=== PATIENT | female | born 1970 | race Caucasian/White ===

== ENCOUNTER 2024-12-15 06:07 | Day surgery (SDC) | payer OTHER, SELFPAY ==
[2024-12-03 08:49] LABS: Hematocrit 35.4 % (37.0-47.0); Hemoglobin 11.8 g/dL (12.0-16.0); Mean Corp Hgb Conc. 33.3 g/dL (33.0-37.0); Mean Corpuscular Hgb 31.6 pg (27.0-31.0); Mean Corpuscular Volume 94.7 fL (81.0-99.0); Mean Platelet Volume 9.4 fL (7.4-10.4); Platelet Count 301 10^3/uL (130-400); Red Blood Cell Count 3.74 10^6/uL (4.20-5.40); Red Cell Dist. Width 11.7 % (11.5-14.5); White Blood Cell Count 8.7 10^3/uL (4.8-10.8)
[2024-12-03 08:56] LABS: APTT 29.4 Sec (23.4-35.0); INR 0.88; PT 12.5 Sec (11.4-14.6)
[2024-12-03 09:13] LABS: ALT (SGPT) 13 U/L (0-35); AST (SGOT) 19 U/L (14-36); Albumin 4.4 g/dl (3.5-5.0); Alkaline Phosphatase 101 U/L (38-126); Blood Urea Nitrogen 17 mg/dl (7-17); Calcium 11.6 mg/dl (8.4-10.2); Carbon Dioxide 28 mmol/L (22-30); Chloride 106 mmol/L (98-107); Glucose 101 mg/dl (70-99); Potassium 4.8 mmol/L (3.5-5.1); Sodium 142 mmol/L (135-145); Total Bilirubin 0.6 mg/dl (0.2-1.3); Total Protein 6.8 g/dl (6.3-8.2); eGFR > 60.00
[2024-12-03 14:04] VITALS: BMI 24.1
--- NOTE | 2024-12-08 14:32 | PTCARENOTE ---
Patients 12/03 ECG abnormal- reviewed by Dr. Alford- no additional interventions requested
[2024-12-15] VITALS (18 sets, daily range): BP systolic 111–151; BP diastolic 73–95; BMI 24.1
[2024-12-15] MEDS: TYLENOL 1000 MG PO (07:08)
[2024-12-15] MEDS: TRANSDERM-SCOP 1 PATCH TRANSDERM (07:08)
[2024-12-15] MEDS: HEPARIN 5000 UNITS SC (07:08)
[2024-12-15] MEDS: NEURONTIN 300 MG PO (07:08)
[2024-12-15] MEDS: NORMOSOL-R/PLASMALYTE-A 1000 IV (07:09)
[2024-12-15 08:16] LABS: Turbo PTH 154.2 pg/ml (13.6-85.8)
--- NOTE | 2024-12-15 08:26 | OR.RPT ---
Operative Report
Operative Report
Date of Operation: December 15, 2024
Preoperative Diagnosis: Hyperparathyroidism - E210
Postoperative Diagnosis: Same
Surgeon: Steven Bertrand M.D.
Operation: Neck exploration, Left Superior, Right Superior and Right Inferior Parathyroidectomy - [id number]
Anesthesia: GET
Estimated Blood Loss: 5 cc
Drains: None
Specimen: Left upper, right upper, and Right lower neck nodules, rule out parathyroid adenomas
Complications: None
Procedure:
The patient was taken to the operating room and placed in the usual supine position. After adequate general endotracheal anesthesia was established, the patient's neck was extended, prepped, and draped in the typical sterile fashion. A 4 cm
transcervical incision was made two fingerbreadths above the sternal notch. The skin incision was made with the #15 blade, and this was taken through the skin into the subcutaneous tissue. The underlying platysma muscle was divided, and subplatysmal
flaps were created superiorly to the thyroid cartilage and inferiorly to the sternal notch. Strap muscles were identified and at the midline.
Attention was turned to the patient's right side of the neck. The right thyroid lobe was mobilized medially. During this process, the right recurrent laryngeal nerve was identified and preserved throughout the surgery. The right lower neck nodule
was identified and noted to be enlarged, excised, and sent to the pathology department, which showed a hypercellular parathyroid gland weighing 169 mg. Unfortunately, the 15-minute intraoperative PTH level failed to normalize (only decreased to 134
pg/mL from the pre-resection PTH level of 169 pg/mL). Therefore, further exploration was performed. A somewhat enlarged right superior parathyroid gland was identified.
Next, attention was turned to the left side of the neck. The left thyroid lobe was mobilized medially. During this process, the left recurrent laryngeal nerve was identified and preserved throughout the surgery. An enlarged left upper neck nodule
was identified, which was excised and sent to the pathology department, which showed a hypercellular parathyroid gland weighing 134 mg. Unfortunately, a 15-minute intraoperative PTH increased to 730 pg/mL. The left inferior parathyroid gland was
not identified.
With the above findings, the right superior gland was also resected and sent to the pathology department, revealing a 78 mg hypercellular parathyroid gland weighing 78 mg.
Unfortunately, the intraoperative PTH level failed to normalized. We decide to recheck her blood work as an outpatient and regroup.
After obtaining adequate hemostasis, the strap muscles were reapproximated with #3-0 Vicryl in a running fashion. The platysma muscle was reapproximated with #3-0 Vicryl in an interrupted fashion, and the skin was approximated with #4-0 Monocryl in
a running subcuticular fashion. The Steri-Strips and sterile dressings were placed. The patient tolerated the procedure well. The final instrument, needle, and sponge counts were correct. The patient was extubated and transferred to the PACU.
[2024-12-15 08:54] LABS: Turbo PTH 166.6 pg/ml (13.6-85.8)
[2024-12-15 10:31] LABS: Turbo PTH 730.3 pg/ml (13.6-85.8)
[2024-12-15 11:11] LABS: Turbo PTH 185.5 pg/ml (13.6-85.8)
== END 2024-12-15 13:22 | disposition home or self-care (01) ==
LOC: SDS 06:07
PROVIDERS: ATTENDING PHYSICIAN Surgery; FAMILY PHYSICIAN Internal Medicine
DX: E21.3 Hyperparathyroidism, unspecified (principal)
CPT/HCPCS: 60500; 88305; 88332; 80053; 83970; 85027; 85610; 85730; 88331; 93005